=== PATIENT | female | born 1965 | race Caucasian/White ===

== ENCOUNTER → 2022-02-24 | Outpatient (CLI) | payer BC | LOC: RAD 15:15 | DX: M67.813 Other specified disorders of tendon, right shoulder (principal); M65.819 Other synovitis and tenosynovitis, unspecified shoulder ==

== ENCOUNTER 2022-04-23 12:38 | Emergency (ER) | payer BC ==
[~2022-04-23] VITALS: Ht 165.1 cm; Wt 97.7 kg
[2022-04-23] MEDS ORDERED: LEXAPRO20 M1 PO (13:06)
[2022-04-23] MEDS ORDERED: PHENTERMINE H37.5 M3 PO (13:06)
[2022-04-23] MEDS ORDERED: MELOXICAM15 MG PO (13:06)
[2022-04-23 13:08] LABS: BASO # 0.02 K/mm3 (0.02-0.10); EOS # 0.08 K/mm3 (0.04-0.40); EOS % 1.2 % (1.0-5.0); HEMATOCRIT 42.7 % (37.0-47.0); HEMOGLOBIN 14.7 g/dL (12.5-16.0); LYMPH# 1.42 K/mm3 (1.50-4.00); MEAN CELL VOLUME 92 fl (78-100); MEAN CORPUSCULAR HEMOGLOBIN 32 pg (27-31); MEAN CORPUSCULAR HGB CONC 34 g/dL (33-37); MEAN PLATELET VOLUME 9.6 fl (7.4-10.4); MONO # 0.49 K/mm3 (0.20-0.80); NEU # 4.51 K/mm3 (1.40-6.50); PLATELET COUNT 322 K/mm3 (130-400); RED BLOOD COUNT 4.64 M/mm3 (4.10-5.30); RED CELL DISTRIBUTION WIDTH 12.7 % (11.5-14.5); WHITE BLOOD COUNT 6.5 K/mm3 (4.8-10.8)
[2022-04-23] MEDS ORDERED: CITALOPRAM40 MG PO (13:15)
[2022-04-23 13:16] LABS: ALBUMIN 4.2 g/dL (3.5-5.0); POTASSIUM 3.7 mmol/L (3.5-5.1)
[2022-04-23 13:17] LABS: CALCIUM 10.2 mg/dL (8.3-10.5)
[2022-04-23 13:18] LABS: TOTAL PROTEIN 7.4 g/dL (6.4-8.3)
[2022-04-23 13:20] LABS: TOTAL BILIRUBIN 0.7 mg/dL (0.2-1.2)
[2022-04-23 13:28] LABS: D-DIMER 0.29 mg/L FEU (0.15-0.50)
[2022-04-23] MEDS ORDERED: LORAZEPAM0.5 M1 PO (14:26)
[2022-04-23 16:00] VITALS: BP 158/68
== END 2022-04-23 16:01 | disposition home or self-care (01) ==
LOC: ED 12:38
PROVIDERS: Family Medicine
DX: M94.0 Chondrocostal junction syndrome [Tietze] (principal); F41.9 Anxiety disorder, unspecified; I10 Essential (primary) hypertension; E66.9 Obesity, unspecified; Z68.35 Body mass index [BMI] 35.0-35.9, adult